=== PATIENT | female | born 1990 | race Caucasian/White ===

== ENCOUNTER 2016-08-31 19:11 | Emergency (ER) | payer MEDICAID ==
[2016-08-31 20:12] LABS: BASOPHIL % 0.5 % (0-2); PLATELET COUNT 236 x10^3mcL (130-400)
[2016-08-31 20:20] LABS: CALCIUM 8.8 mg/dL (8.5-10.1); CARBON DIOXIDE 23.8 mmol/L (21-32); CHLORIDE SERUM 103 mmol/L (98-107); GFR1 > 60 mL/min; GLUCOSE SERUM 145 mg/dL (74-106); POTASSIUM SERUM 3.2 mmol/L (3.5-5.1); SODIUM SERUM 139 mmol/L (136-145)
[2016-08-31 20:33] LABS: ALBUMIN 4.1 g/dL (3.4-5.0); ALKALINE PHOSPHATASE 86 U/L (46-116); ALT/SGPT 26 U/L (14-59); AMYLASE 39 U/L (25-115); AST/SGOT 36 U/L (15-37); BILIRUBIN TOTAL 0.88 mg/dL (0.20-1.00); CHOLESTEROL 164 mg/dL (<200); LIPASE 110 IU/L (73-393); T4(THYROXINE) 7.8 ug/dL (4.7-13.3); TOTAL PROTEIN, SERUM 7.7 g/dL (6.4-8.2)
[2016-08-31 21:31] LABS: microscopic required? NO
[2016-08-31 21:46] LABS: urine erythrocyte NEGATIVE (NEGATIVE)
[2016-08-31 21:53] LABS: AMPHETAMINE QUAL UR NONE DETECTED (NEG <=1000)
[2016-08-31 23:03] VITALS: BP 115/54
== END 2016-08-31 23:03 | disposition home or self-care (01) ==
LOC: ED 19:11
PROVIDERS: Emergency Medicine
DX: F41.0 Panic disorder [episodic paroxysmal anxiety] (principal); F12.90 Cannabis use, unspecified, uncomplicated; J45.909 Unspecified asthma, uncomplicated; D64.9 Anemia, unspecified; E87.6 Hypokalemia
CPT/HCPCS: 83880; J2060; J7030; Q0092